=== PATIENT | female | born 1975 | race African-American/Black ===

== ENCOUNTER 2021-12-11 09:49 | Inpatient (IN) | payer OTHER ==
[2021-12-11 10:40] VITALS: BMI 34.1
[2021-12-11] MEDS ORDERED: P-EPHED 60MG/TRIPROLIDI 2.5MG TABLET PO PRN (11:12)
[2021-12-11] MEDS ORDERED: guaiFENesin 200 MG/10 ML 10 ML UNIT-DOSE CUPS PO PRN (11:12)
[2021-12-11] MEDS ORDERED: NICOTINE 10 MG CARTRIDGE (INHALER) IH PRN (11:12)
[2021-12-11] MEDS ORDERED: MAG HYDROX/AL HYDROX/SIMETH 30 ML UNIT-DOSE CUP PO PRN (11:12)
[2021-12-11] MEDS ORDERED: MAGNESIUM HYDROX 2400MG/30ML ORAL SUSPENSION 30 ML CUP PO PRN (11:12)
[2021-12-11] MEDS ORDERED: MAGNESIUM CITRATE 300 ML BOTTLE PO PRN (11:12)
[2021-12-11] MEDS ORDERED: LOPERAMIDE HCL 2 MG CAPSULE PO PRN (11:12)
[2021-12-11] MEDS: hydrOXYzine PAMOATE 25 MG CAPSULE (FP) PO SCH ×4 (18:35→21:15)
[2021-12-11] MEDS: NICOTINE 7 MG/24 HOURS TOPICAL PATCH TD SCH (18:35)
[2021-12-11] MEDS: PRENATAL VITAMINS W/ FOLIC ACID TABLET (FP) PO SCH (18:50)
[2021-12-11] MEDS ORDERED: ALBUTEROL SO4 HFA INHALER IH PRN (19:30)
[2021-12-11] MEDS: LISINOPRIL 10 MG TABLET PO SCH (19:56)
[2021-12-11] MEDS: ASPIRIN COATED 81 MG TABLET.EC PO SCH (19:56)
[2021-12-11] MEDS: INSULIN SLIDING SCALE (NOVOLOG) 1 VIAL SQ SCH ×2 (19:58→22:12)
[2021-12-11] MEDS: INSULIN (LEVEMIR) 100 UNITS/ML UNITS SQ SCH (21:10)
[2021-12-11] MEDS: ATORVASTATIN CA 10 MG TABLET (FP) PO SCH (21:12)
[2021-12-11] MEDS: MELATONIN 5 MG TABLETS PO SCH (21:13)
[2021-12-11] MEDS: THIAMINE HCL 100 MG TABLET (FP) PO SCH (21:13)
[2021-12-11] MEDS: TOLNAFTATE 1% CREAM 15 GM TUBE TP SCH (21:15)
[2021-12-12] MEDS: hydrOXYzine PAMOATE 25 MG CAPSULE (FP) PO SCH ×5 (06:51→21:28)
[2021-12-12] MEDS: metFORMIN HCL 500 MG TABLET (FP) PO SCH (06:52)
[2021-12-12] MEDS: sitaGLIPtin PHOSPHATE 50 MG TABLET PO SCH (06:52)
[2021-12-12] MEDS: glipiZIDE 5 MG TABLET (FP) PO SCH (06:52)
[2021-12-12] MEDS: INSULIN SLIDING SCALE (NOVOLOG) 1 VIAL SQ SCH ×4 (06:52→21:30)
[2021-12-12] MEDS ORDERED: INSULIN (NOVOLOG) ASPART 100 UNITS/ML 10ML VIAL ONE (06:56)
[2021-12-12 09:21] LABS: HEMATOCRIT 40.9 % (32.4-45.2); MCH 31.6 pg (25.7-33.7); MCHC 34.1 g/dl (32.0-36.0); MEAN CELL VOLUME 92.7 fl (80-96); MEAN PLT VOLUME 7.6 fl (7.5-11.1); PLATELET COUNT 344 10^3/uL (134-434); RBC 4.42 M/mm3 (3.60-5.2); RDW 13.3 % (11.6-15.6)
[2021-12-12 09:30] LABS: ALBUMIN 3.1 g/dl (3.4-5.0); BLOOD UREA NITROGEN 10.4 mg/dL (7-18); CALCIUM 8.4 mg/dL (8.5-10.1)
[2021-12-12 09:33] LABS: BILIRUBIN,TOTAL 0.6 mg/dL (0.2-1)
[2021-12-12 09:34] LABS: CREATININE 0.7 mg/dL (0.55-1.3)
[2021-12-12 09:35] LABS: TOT PROT 6.3 g/dl (6.4-8.2)
[2021-12-12] MEDS ORDERED: PATIENT'S OWN MEDICATION (NON-FORMULARY) (Alogliptin Benz/Metformin Hcl [Alogliptin-Metfor PO SCH (10:00)
[2021-12-12] MEDS: LISINOPRIL 10 MG TABLET PO SCH (10:21)
[2021-12-12] MEDS: PRENATAL VITAMINS W/ FOLIC ACID TABLET (FP) PO SCH (10:21)
[2021-12-12] MEDS: ASPIRIN COATED 81 MG TABLET.EC PO SCH (10:22)
[2021-12-12] MEDS: GABAPENTIN 300 MG CAPSULE PO SCH (10:22)
[2021-12-12] MEDS: NICOTINE 7 MG/24 HOURS TOPICAL PATCH TD SCH (10:22)
[2021-12-12] MEDS: TOLNAFTATE 1% CREAM 15 GM TUBE TP SCH ×2 (10:23→21:29)
[2021-12-12 14:01] LABS: SYPHILIS W/ RPR CONF NON-REACTIVE (NONREACTIVE)
[2021-12-12] MEDS: ATORVASTATIN CA 10 MG TABLET (FP) PO SCH (21:28)
[2021-12-12] MEDS: THIAMINE HCL 100 MG TABLET (FP) PO SCH (21:28)
[2021-12-12] MEDS: MELATONIN 5 MG TABLETS PO SCH (21:28)
[2021-12-12] MEDS: INSULIN (LEVEMIR) 100 UNITS/ML UNITS SQ SCH (21:30)
[2021-12-13] MEDS: INSULIN SLIDING SCALE (NOVOLOG) 1 VIAL SQ SCH ×4 (06:07→21:17)
[2021-12-13] MEDS: hydrOXYzine PAMOATE 25 MG CAPSULE (FP) PO SCH (06:07)
[2021-12-13] MEDS: glipiZIDE 5 MG TABLET (FP) PO SCH (06:07)
[2021-12-13] MEDS: metFORMIN HCL 500 MG TABLET (FP) PO SCH (06:07)
[2021-12-13] MEDS: sitaGLIPtin PHOSPHATE 50 MG TABLET PO SCH (06:07)
[2021-12-13] MEDS: ACETAMINOPHEN 325 MG TABLET (FP) PO PRN (06:08)
[2021-12-13 08:10] LABS: SARS-CoV-2 NAA Not Detected (Not Detected)
[2021-12-13] MEDS: LISINOPRIL 10 MG TABLET PO SCH (10:55)
[2021-12-13] MEDS: PRENATAL VITAMINS W/ FOLIC ACID TABLET (FP) PO SCH (10:55)
[2021-12-13] MEDS: ASPIRIN COATED 81 MG TABLET.EC PO SCH (10:56)
[2021-12-13] MEDS: GABAPENTIN 300 MG CAPSULE PO SCH (10:56)
[2021-12-13] MEDS: NICOTINE 7 MG/24 HOURS TOPICAL PATCH TD SCH (10:56)
[2021-12-13] MEDS: TOLNAFTATE 1% CREAM 15 GM TUBE TP SCH ×2 (10:57→21:21)
[2021-12-13] MEDS: INSULIN (LEVEMIR) 100 UNITS/ML UNITS SQ SCH (21:18)
[2021-12-13] MEDS: MELATONIN 5 MG TABLETS PO SCH (21:20)
[2021-12-13] MEDS: THIAMINE HCL 100 MG TABLET (FP) PO SCH (21:20)
[2021-12-13] MEDS: ATORVASTATIN CA 10 MG TABLET (FP) PO SCH (21:20)
[2021-12-13] MEDS: hydrOXYzine PAMOATE 25 MG CAPSULE (FP) PO PRN (21:20)
[2021-12-14] MEDS: metFORMIN HCL 500 MG TABLET (FP) PO SCH (06:49)
[2021-12-14] MEDS: sitaGLIPtin PHOSPHATE 50 MG TABLET PO SCH (06:49)
[2021-12-14] MEDS: glipiZIDE 5 MG TABLET (FP) PO SCH (06:49)
[2021-12-14] MEDS: ACETAMINOPHEN 325 MG TABLET (FP) PO PRN ×2 (06:51→19:20)
[2021-12-14] MEDS: INSULIN SLIDING SCALE (NOVOLOG) 1 VIAL SQ SCH ×4 (07:05→23:07)
[2021-12-14] MEDS: GABAPENTIN 300 MG CAPSULE PO SCH (10:42)
[2021-12-14] MEDS: PRENATAL VITAMINS W/ FOLIC ACID TABLET (FP) PO SCH (10:42)
[2021-12-14] MEDS: ASPIRIN COATED 81 MG TABLET.EC PO SCH (10:43)
[2021-12-14] MEDS: NICOTINE 7 MG/24 HOURS TOPICAL PATCH TD SCH (10:44)
[2021-12-14] MEDS: LISINOPRIL 10 MG TABLET PO SCH (10:46)
[2021-12-14] MEDS: TOLNAFTATE 1% CREAM 15 GM TUBE TP SCH ×2 (10:47→23:07)
[2021-12-14] MEDS: IBUPROFEN 400 MG TABLET (FP) PO PRN (10:48)
[2021-12-14] MEDS ORDERED: NICOTINE POLACRILEX 2 MG GUM BUC PRN (18:47)
[2021-12-14] MEDS: INSULIN (LEVEMIR) 100 UNITS/ML UNITS SQ SCH (21:03)
[2021-12-14] MEDS: ATORVASTATIN CA 10 MG TABLET (FP) PO SCH (21:04)
[2021-12-14] MEDS: THIAMINE HCL 100 MG TABLET (FP) PO SCH (21:04)
[2021-12-14] MEDS: MELATONIN 5 MG TABLETS PO SCH (21:05)
[2021-12-14] MEDS: hydrOXYzine PAMOATE 25 MG CAPSULE (FP) PO PRN (21:05)
[2021-12-15] MEDS: ACETAMINOPHEN 325 MG TABLET (FP) PO PRN ×3 (06:29→21:13)
[2021-12-15] MEDS: glipiZIDE 5 MG TABLET (FP) PO SCH (06:29)
[2021-12-15] MEDS: sitaGLIPtin PHOSPHATE 50 MG TABLET PO SCH (06:29)
[2021-12-15] MEDS: INSULIN SLIDING SCALE (NOVOLOG) 1 VIAL SQ SCH ×4 (06:29→21:12)
[2021-12-15] MEDS: metFORMIN HCL 500 MG TABLET (FP) PO SCH (06:29)
[2021-12-15] MEDS: ASPIRIN COATED 81 MG TABLET.EC PO SCH (11:03)
[2021-12-15] MEDS: PRENATAL VITAMINS W/ FOLIC ACID TABLET (FP) PO SCH (11:03)
[2021-12-15] MEDS: LISINOPRIL 10 MG TABLET PO SCH (11:03)
[2021-12-15] MEDS: NICOTINE 7 MG/24 HOURS TOPICAL PATCH TD SCH (11:03)
[2021-12-15] MEDS: GABAPENTIN 300 MG CAPSULE PO SCH (11:03)
[2021-12-15] MEDS: TOLNAFTATE 1% CREAM 15 GM TUBE TP SCH ×2 (11:06→21:15)
[2021-12-15] MEDS: THIAMINE HCL 100 MG TABLET (FP) PO SCH (21:10)
[2021-12-15] MEDS: ATORVASTATIN CA 10 MG TABLET (FP) PO SCH (21:10)
[2021-12-15] MEDS: MELATONIN 5 MG TABLETS PO SCH (21:10)
[2021-12-15] MEDS: INSULIN (LEVEMIR) 100 UNITS/ML UNITS SQ SCH (21:11)
[2021-12-15] MEDS: IBUPROFEN 400 MG TABLET (FP) PO PRN (23:50)
[2021-12-16] MEDS: glipiZIDE 5 MG TABLET (FP) PO SCH (06:23)
[2021-12-16] MEDS: metFORMIN HCL 500 MG TABLET (FP) PO SCH (06:23)
[2021-12-16] MEDS: sitaGLIPtin PHOSPHATE 50 MG TABLET PO SCH (06:23)
[2021-12-16] MEDS: INSULIN SLIDING SCALE (NOVOLOG) 1 VIAL SQ SCH ×4 (06:24→23:55)
[2021-12-16] MEDS: GABAPENTIN 300 MG CAPSULE PO SCH (09:11)
[2021-12-16] MEDS: LISINOPRIL 10 MG TABLET PO SCH (09:11)
[2021-12-16] MEDS: PRENATAL VITAMINS W/ FOLIC ACID TABLET (FP) PO SCH (09:11)
[2021-12-16] MEDS: ASPIRIN COATED 81 MG TABLET.EC PO SCH (09:12)
[2021-12-16] MEDS: IBUPROFEN 400 MG TABLET (FP) PO PRN ×2 (09:12→17:01)
[2021-12-16] MEDS: NICOTINE 7 MG/24 HOURS TOPICAL PATCH TD SCH (09:13)
[2021-12-16] MEDS: TOLNAFTATE 1% CREAM 15 GM TUBE TP SCH ×2 (09:14→23:04)
[2021-12-16] MEDS: INSULIN (LEVEMIR) 100 UNITS/ML UNITS SQ SCH (22:58)
[2021-12-16] MEDS: MELATONIN 5 MG TABLETS PO SCH (23:03)
[2021-12-16] MEDS: ATORVASTATIN CA 10 MG TABLET (FP) PO SCH (23:03)
[2021-12-16] MEDS: THIAMINE HCL 100 MG TABLET (FP) PO SCH (23:04)
[2021-12-16] MEDS ORDERED: INSULIN (NOVOLOG) ASPART 100 UNITS/ML 10ML VIAL ONE (23:45)
[2021-12-17 01:20] LABS: PH,URINE 5.5 (5.0-8.0); URINE APPEARANCE CLEAR; URINE BILIRUBIN NEGATIVE (NEGATIVE); URINE COLOR YELLOW; URINE GLUCOSE (UA) 3+ (NEGATIVE); URINE KETONE TRACE (NEGATIVE); URINE LEUK ESTERASE NEGATIVE (NEGATIVE); URINE NITRITE NEGATIVE (NEGATIVE); URINE PROTEIN NEGATIVE (NEGATIVE); URINE UROBILINOGEN 0.2 mg/dL (0.2-1.0)
[2021-12-17] MEDS: IBUPROFEN 400 MG TABLET (FP) PO PRN ×3 (01:52→17:04)
[2021-12-17] MEDS: glipiZIDE 5 MG TABLET (FP) PO SCH (06:16)
[2021-12-17] MEDS: sitaGLIPtin PHOSPHATE 50 MG TABLET PO SCH (06:16)
[2021-12-17] MEDS: metFORMIN HCL 500 MG TABLET (FP) PO SCH (06:16)
[2021-12-17] MEDS: INSULIN SLIDING SCALE (NOVOLOG) 1 VIAL SQ SCH ×4 (06:17→22:00)
[2021-12-17] MEDS: LISINOPRIL 10 MG TABLET PO SCH (11:10)
[2021-12-17] MEDS: ASPIRIN COATED 81 MG TABLET.EC PO SCH (11:10)
[2021-12-17] MEDS: GABAPENTIN 300 MG CAPSULE PO SCH (11:10)
[2021-12-17] MEDS: PRENATAL VITAMINS W/ FOLIC ACID TABLET (FP) PO SCH (11:10)
[2021-12-17] MEDS: TOLNAFTATE 1% CREAM 15 GM TUBE TP SCH ×2 (11:11→23:05)
[2021-12-17] MEDS: NICOTINE 7 MG/24 HOURS TOPICAL PATCH TD SCH (11:11)
[2021-12-17 14:06] LABS: SARS-CoV-2 NAA Not Detected (Not Detected)
[2021-12-17] MEDS: hydrOXYzine PAMOATE 25 MG CAPSULE (FP) PO PRN (21:27)
[2021-12-17] MEDS: ATORVASTATIN CA 10 MG TABLET (FP) PO SCH (21:27)
[2021-12-17] MEDS: INSULIN (LEVEMIR) 100 UNITS/ML UNITS SQ SCH (21:27)
[2021-12-17] MEDS: THIAMINE HCL 100 MG TABLET (FP) PO SCH (21:27)
[2021-12-17] MEDS: MELATONIN 5 MG TABLETS PO SCH (21:27)
[2021-12-17] MEDS ORDERED: INSULIN (NOVOLOG) ASPART 100 UNITS/ML 10ML VIAL ONE (23:12)
[2021-12-18] MEDS: INSULIN SLIDING SCALE (NOVOLOG) 1 VIAL SQ SCH (06:33)
[2021-12-18] MEDS: glipiZIDE 5 MG TABLET (FP) PO SCH (06:34)
[2021-12-18] MEDS: sitaGLIPtin PHOSPHATE 50 MG TABLET PO SCH (06:34)
[2021-12-18] MEDS: metFORMIN HCL 500 MG TABLET (FP) PO SCH (06:34)
[2021-12-18] MEDS: IBUPROFEN 400 MG TABLET (FP) PO PRN (06:35)
[2021-12-18 07:37] VITALS: TEMP 97.7
[2021-12-18] MEDS: NICOTINE 7 MG/24 HOURS TOPICAL PATCH TD SCH (10:54)
[2021-12-18] MEDS: PRENATAL VITAMINS W/ FOLIC ACID TABLET (FP) PO SCH (10:54)
[2021-12-18] MEDS: TOLNAFTATE 1% CREAM 15 GM TUBE TP SCH (10:55)
[2021-12-18] MEDS: LISINOPRIL 10 MG TABLET PO SCH (10:55)
[2021-12-18] MEDS: GABAPENTIN 300 MG CAPSULE PO SCH (10:55)
[2021-12-18] MEDS: ASPIRIN COATED 81 MG TABLET.EC PO SCH (10:55)
[2021-12-18 11:03] VITALS: BP 157/83; PULSE 81
== END 2021-12-18 11:35 | disposition home or self-care (01) | DRG 772 ==
LOC: YASAS 09:49 → Y5N 10:34
PROVIDERS: ADMIT Allergy & Immunology; ATTEND Allergy & Immunology
PROC: HZ42ZZZ Group Counseling for Substance Abuse Treatment, Cognitive-Behavioral (ICD-10-PCS; principal; 2021-12-11)
DX: F10.20 Alcohol dependence, uncomplicated (principal); F14.20 Cocaine dependence, uncomplicated; F12.10 Cannabis abuse, uncomplicated; F17.210 Nicotine dependence, cigarettes, uncomplicated; F41.1 Generalized anxiety disorder; F43.10 Post-traumatic stress disorder, unspecified; I10 Essential (primary) hypertension; E78.5 Hyperlipidemia, unspecified; E11.9 Type 2 diabetes mellitus without complications; Z79.4 Long term (current) use of insulin; E66.9 Obesity, unspecified; Z68.34 Body mass index [BMI] 34.0-34.9, adult
CPT/HCPCS: 36415; 80053; 81003; 81025; 82962; 83036; 85027; 86780; 86803; 87811; C9803; U0003; U0005